=== PATIENT | female | born 1950 | race Caucasian/White ===

== ENCOUNTER 2023-07-30 13:01 | Outpatient (CLI) | payer MEDICARE ==
[~2023-07-30 13:01] MED LIST: Magnevist 469MG/ML 20 ML VIAL ONE
== END 2023-07-30 13:02 | disposition home or self-care (01) ==
LOC: CSHMRI 13:01
PROVIDERS: ATTEND Radiology Radiation Oncology
DX: C79.31 Secondary malignant neoplasm of brain (principal); C50.919 Malignant neoplasm of unspecified site of unspecified female breast; Z98.890 Other specified postprocedural states; Z92.3 Personal history of irradiation
CPT/HCPCS: 70553

== ENCOUNTER 2024-05-20 12:42 | Outpatient (CLI) | payer MEDICARE ==
[2024-05-20] MEDS ORDERED: Magnevist 469MG/ML 20 ML VIAL ONE (15:04)
== END 2024-05-20 12:43 | disposition home or self-care (01) ==
LOC: CSHMRI 12:42
PROVIDERS: ATTEND Radiology Radiation Oncology
DX: C79.31 Secondary malignant neoplasm of brain (principal); C50.919 Malignant neoplasm of unspecified site of unspecified female breast; Z98.890 Other specified postprocedural states; Z92.3 Personal history of irradiation
CPT/HCPCS: 36415; 70553; 76376; 82565

== ENCOUNTER 2024-08-26 12:13 | Outpatient (CLI) | payer OTHER | END 2024-08-26 12:14 | disposition home or self-care (01) | LOC: CSHMRI 12:13 | PROVIDERS: ATTEND Radiology Radiation Oncology | DX: C79.31 Secondary malignant neoplasm of brain (principal); C50.919 Malignant neoplasm of unspecified site of unspecified female breast; Z92.3 Personal history of irradiation | CPT/HCPCS: 36415; 70553; 76376; 82565 ==